=== PATIENT | female | born 1945 | race Caucasian/White ===

== ENCOUNTER → 2021-04-07 | Outpatient (CLI) | payer MEDICARE ==
--- NOTE | 2021-04-07 14:03 | KCIC ---
EXAM: XR KNEE 3 VIEWS_RT 04/07/2021 1:15 PM CLINICAL INDICATION: Right knee pain after fall one month ago COMPARISON: None TECHNIQUE: 3 views of the right knee FINDINGS: No acute fracture. Alignment is normal. No significant degenerative changes. No joint effu smooth or soft tissue abnormality. IMPRESSION: No acute osseous abnormality. Electronically signed by: Mary Olmos MD (04/07/2021 2:00 PM) [id number]
== END ==
LOC: KCIC 12:45
PROVIDERS: ATTEND Internal Medicine
DX: M25.561 Pain in right knee (principal); W19.XXXA Unspecified fall, initial encounter
CPT/HCPCS: 73562